=== PATIENT | female | born 1945 | race Caucasian/White ===

== ENCOUNTER 2019-01-01 20:36 | Emergency (ER) | payer MEDICARE, BC ==
[~2019-01-01] VITALS: Ht 162.6 cm; Wt 92.6 kg
[~2019-01-01 20:36] MED LIST: ATEN25TA PO; CEPH-368 PO; CLIN300C8 PO; LOSA1TAB25 PO; OXYC-302 PO; PANT40GR PO
[2019-01-01] MEDS ORDERED: SODIUM CHLORIDE FLUSH 10ML SYR IVF ONE (21:00)
--- NOTE | 2019-01-01 21:15 | NUR ---
REPORT FROM VIKAS PARKINSON. PT RESTING IN ROOM. VSS. UA COLLECTED AND SENT.
[2019-01-01] MEDS ORDERED: MORPHINE SULFATE 4 MG/ML, 1ML IVPush PRN (21:30)
[2019-01-01] MEDS ORDERED: ONDANSETRON 2MG/ML, 2ML IVPush ONE (21:30)
[2019-01-01] MEDS ORDERED: MORPHINE SULFATE 4 MG/ML, 1ML ONE (21:35)
[2019-01-01] MEDS ORDERED: ONDANSETRON 2MG/ML, 2ML ONE (21:35)
[2019-01-01 21:49] LABS: BASOPHILS # (AUTO) 0.04 x10^3/uL (0-0.1); BASOPHILS % (AUTO) 1 % (0-1); EOSINOPHILS # (AUTO) 0.24 x10^3/uL (0-0.4); EOSINOPHILS % (AUTO) 3 % (1-7); LYMPHOCYTES # (AUTO) 2.77 x10^3/uL (1-3.4); LYMPHOCYTES % (AUTO) 31 % (22-44); MD NO; MEAN CORPUSCULAR HGB CONC 33.4 g/dL (32.4-35.8); MEAN CORPUSCULAR VOLUME 92.7 fL (80-100); MEAN PLATELET VOLUME 7.5 fL (7.4-10.4); MONOCYTES # (AUTO) 0.91 x10^3/uL (0.2-0.8); MONOCYTES % (AUTO) 10 % (2-9); NEUTROPHILS # (AUTO) 4.85 x10^3/uL (1.8-6.8); NEUTROPHILS % (AUTO) 55 % (42-75); PLATELET COUNT 362 x10^3/uL (130-400); RED CELL DISTRIBUTION WIDTH 13.5 % (9.6-15.2)
--- NOTE | 2019-01-01 21:57 | NUR ---
REPORT TO VIKAS ALCANTAR. MEDICATED PER MAR AND REPORTS DECREASE IN PAIN. VSS. NO NEEDS EXPRESSED. CALL LIGHT WITHIN REACH.
[2019-01-01 22:02] LABS: ALBUMIN 3.4 g/dL (3.4-5.0); ANION GAP 7 mmol/L (5-15); CALCIUM 8.7 mg/dL (8.5-10.1); CHLORIDE 109 mmol/L (98-107)
[2019-01-01 22:06] LABS: MICROSCOPIC AUTO
[2019-01-01 22:08] LABS: ALANINE AMINOTRANSFERASE 27 U/L (12-78); ALKALINE PHOSPHATASE 63 U/L (45-117); BILIRUBIN,TOTAL 0.4 mg/dL (0.2-1.0); CREATININE 1.01 mg/dL (0.55-1.02); TOTAL PROTEIN 6.9 g/dL (6.4-8.2); TROPONIN I < 0.015 ng/mL (0.000-0.045)
[2019-01-01 22:08] LABS: CULTURE INDICATED? NO
--- NOTE | 2019-01-01 22:24 | NUR ---
TO CT VIA CART.. FAMILY AT BS.
[2019-01-01] MEDS ORDERED: OMNIPAQUE 350 MG/ML, 100ML BOTTLE ONE (22:38)
[2019-01-01 23:56] VITALS: BP 138/75
--- NOTE | 2019-01-01 23:56 | NUR ---
PT GIVEN WATER. TOLERATED WELL. STATES SHES READY TO GO. AWARE OF PENDING DC PPW.
== END 2019-01-02 00:47 | disposition home or self-care (01) ==
LOC: ED 23:59
DX: M51.36 Other intervertebral disc degeneration, lumbar region (principal); M47.896 Other spondylosis, lumbar region; I10 Essential (primary) hypertension; E78.5 Hyperlipidemia, unspecified; K21.9 Gastro-esophageal reflux disease without esophagitis; Z90.89 Acquired absence of other organs; F17.200 Nicotine dependence, unspecified, uncomplicated
CPT/HCPCS: 36415; 71045; 74177; 80053; 81001; 83690; 84484; 85025; 93005; 96374; 96375; 99284; J2270; J2405; Q9967

== ENCOUNTER 2020-10-03 15:50 | Emergency (ER) | payer MEDICARE, BC ==
[~2020-10-03] VITALS: Ht 162.6 cm; Wt 93.5 kg
[~2020-10-03 15:50] MED LIST changes: -CLIN300C8 PO; +CLIN300C9 PO; -OXYC-302 PO; +OXYC1TAB12 PO
--- NOTE | 2020-10-03 16:04 | NUR ---
EKG DONE IN TRIAGE.
[2020-10-03 16:33] LABS: BASOPHILS % (AUTO) 1 % (0-1); EOSINOPHILS % (AUTO) 3 % (1-7); LYMPHOCYTES % (AUTO) 37 % (22-44); MEAN CORPUSCULAR HEMOGLOBIN 30.8 pg (27.0-34.8); MEAN CORPUSCULAR HGB CONC 33.8 g/dL (32.4-35.8); MEAN PLATELET VOLUME 7.4 fL (7.4-10.4); MONOCYTES % (AUTO) 10 % (2-9); NEUTROPHILS % (AUTO) 49 % (42-75); PLATELET COUNT 355 x10^3/uL (130-400); RED BLOOD COUNT 4.26 x10^6/uL (3.82-5.3)
[2020-10-03 16:44] LABS: ALANINE AMINOTRANSFERASE 35 U/L (12-78); ALBUMIN 3.5 g/dL (3.4-5.0); ANION GAP 7 mmol/L (5-15); CALCIUM 9.3 mg/dL (8.5-10.1); CHLORIDE 104 mmol/L (98-107); CREATININE 1.16 mg/dL (0.55-1.02)
[2020-10-03 16:49] LABS: ALKALINE PHOSPHATASE 63 U/L (45-117); BILIRUBIN,TOTAL 0.4 mg/dL (0.2-1.0); TOTAL PROTEIN 7.7 g/dL (6.4-8.2); TROPONIN I < 0.015 ng/mL (0.000-0.045)
--- NOTE | 2020-10-03 16:52 | NUR ---
STEMHOLE BORER: PT TO ROOM FROM LOBBY
[2020-10-03] MEDS ORDERED: KETOROLAC 30 MG/1 ML IVPush ONE (18:00)
[2020-10-03] MEDS ORDERED: HYDROcodone/APAP 5/325 TABLET PO ONE (18:00)
[2020-10-03] MEDS ORDERED: KETOROLAC 30 MG/1 ML IM ONE (18:00)
[2020-10-03] MEDS ORDERED: KETOROLAC 30 MG/1 ML ONE (18:08)
[2020-10-03] MEDS ORDERED: HYDROcodone/APAP 5/325 TABLET ONE (18:09)
[2020-10-03 19:12] VITALS: BP 103/72
== END 2020-10-03 19:27 | disposition home or self-care (01) ==
LOC: ED 15:55
DX: M54.6 Pain in thoracic spine (principal); I10 Essential (primary) hypertension; E78.5 Hyperlipidemia, unspecified; K21.9 Gastro-esophageal reflux disease without esophagitis; F17.200 Nicotine dependence, unspecified, uncomplicated
CPT/HCPCS: 36415; 71045; 72072; 80053; 83690; 84484; 85025; 93005; 96374; 99285; J1885